=== PATIENT | male | born 1975 | race Caucasian/White ===

== ENCOUNTER 2016-11-08 09:01 | Emergency (ER) | payer BC ==
[~2016-11-08] VITALS: Ht 182.9 cm; Wt 85.0 kg
[~2016-11-08 09:01] MED LIST: AMOX500T PO; CLAR10TA13 PO; LORTA5 PO; NAPR-576 PO
[2016-11-08 09:04] VITALS: BP 154/81; PULSE 96; RESP 20; TEMP 98.4; O2SAT 98
[2016-11-08] MEDS ORDERED: KETOROLAC TROMETHAMINE 60 MG/2 ML (IM) VIAL IM ONE (09:15)
--- NOTE | 2016-11-08 09:15 | PD ---
HPI . right foot injury Chief Complaint: Injury Time Seen by Provider: 09:16 Travel History International Travel<30 days: No Contact w/Intl Traveler<30days: No Traveled to known affect area: No History of Present Illness HPI 41-year-old male with no significant past medical history here with complaints of right foot pain. Apparently patient was extremely intoxicated early this morning and somehow sustained an injury to his right anterior foot. He is unaware of an actual injury mechanism. He is currently residing in a sober house and was kicked out last night due to being inebriated. He was sleeping in the street when his injury occurred. This morning when he was back to himself, he reached out to the leader of the sober house and asked to be brought into the emergency department. Patient is complaining of pain in his right anterior foot, without radiation and 10/10 on a pain scale. He does not want any narcotic medications. He denies any significant past medical history and does not have a primary care provider. He denies any head injury, abdominal pain or other joint pain. [facility] Past Medical History Medical History: Denies Significant Hx Past Surgical History Oral Surgery: Yes Social History Alcohol Use: No Tobacco Use: Yes Substance Use: No Allergies-Medications (Allergen,Severity, Reaction): Coded Allergies: No Known Allergies (Unverified , 11/08/16) Reported Meds & Prescriptions Reported Meds & Active Scripts Active Ibuprofen 800 Mg Tab 800 Mg PO TID Review of Systems General / Constitutional: No: Fever Eyes: No: Visual changes HENT: No: Headaches, Vertigo, Lightheadedness Cardiovascular: No: Chest Pain or Discomfort Respiratory: No: Shortness of Breath Gastrointestinal: No: Abdominal Pain Genitourinary: No: Dysuria Musculoskeletal: Positive: Pain (right foot) Skin: No Rash Neurologic: No: Weakness Psychiatric: No: Depression Endocrine: No: Polydipsia Hematologic/Lymphatic: No: Easy Bruising Physical Exam Narrative GENERAL: AAO x 4, no acute distress, Well-nourished, well-developed patient. SKIN: Warm and dry. No visible rashes. Mild erythema and slight edema to the anterior medial right foot. No ecchymosis. HEAD: Normocephalic and atraumatic. EYES: No scleral icterus. No injection or drainage. ENT: No nasal drainage noted. Mucous membranes pink. Airway patent. NECK: Supple, trachea midline. No JVD. CARDIOVASCULAR: Regular rate and rhythm without murmurs, gallops, or rubs. RESPIRATORY: Breath sounds equally diminished bilaterally. No accessory muscle use. No rhonchi or rales. GASTROINTESTINAL: Abdomen soft, non-tender, nondistended. EXTREMITIES: No cyanosis. Right anterior foot with mild edema and erythema. Point tenderness over the anterior right foot (navicular and cuneiform bones). Pedal pulses are intact. Sensation is normal. BACK: Nontender without obvious deformity. No CVA tenderness. PSYCH: AAO x 4, normal affect. Data Data Last Documented VS Vital Signs Date Time Temp Pulse Resp B/P Pulse Ox O2 Delivery O2 Flow Rate FiO2 11/08/16 09:04 98.4 96 20 154/81 98 Room Air Orders Ketorolac Inj (Toradol Inj) (11/08/16 09:15) Foot, Complete ([id number]) (11/08/16 09:15) ^ Billy Bandage (11/08/16 09:41) Crutches (11/08/16 09:41) MDM Medical Decision Making Medical Screen Exam Complete: Yes Emergency Medical Condition: Yes Medical Record Reviewed: Yes Differential Diagnosis foot sprain, foot fracture, less likely cellulitis Narrative Course 41-year-old male with no significant past medical history here with complaints of right foot pain. Apparently patient was extremely intoxicated early this morning and somehow sustained an injury to his right anterior foot. He is unaware of an actual injury mechanism. He is currently residing in a sober house and was kicked out last night due to being inebriated. He was sleeping in the street when his injury occurred. This morning when he was back to himself, he reached out to the leader of the sober house and asked to be brought into the emergency department. Patient is complaining of pain in his right anterior foot, without radiation and 10/10 on a pain scale. He does not want any narcotic medications. He denies any significant past medical history and does not have a primary care provider. He denies any head injury, abdominal pain or other joint pain. Patient seen and examined. He has significant tenderness over his right anterior foot. We will go ahead and proceed with an x-ray of this extremity. Patient was given a shot of Toradol for pain control. Xray negative for fracture. Discussed with patient. More than likely this is a simple sprain. Provided billy wrap and crutches. Ibuprofen for pain relief. Advised patient to rest, ice, use compression and elevate injured area. Patient verbalized understanding of instructions, questions were answered, and thanked me for their care. I advised them if their condition worsens, please return to the nearest emergency room for further care. Diagnosis Primary Impression: Right foot sprain Qualified Code: S93.601A - Right foot sprain, initial encounter Patient Instructions: Foot Sprain (ED), General Instructions Additional Instructions: Please return to emergency department if your symptoms return or worsen. Follow up with your primary care provider. Take medications as prescribed. Rest the affected area as much as possible. Ice this area for 15-20 minutes at a time. You can do this every hour or as much as tolerated. Keep this area compressed (billy bandage) as tolerated. Elevate this area. Use ibuprofen as needed for pain and inflammation. Med/Other Pt SpecificInfo: Prescription(s) given Scripts Ibuprofen 800 Mg Fru469 Mg PO TID #30 TAB Prov:Casi Barnhart MD 11/08/16 Disposition: 01 DISCHARGE HOME Condition: Stable Nataliia Kaiser Nov 08, 2016 09:14
--- NOTE | 2016-11-08 09:38 | RADRPT ---
EXAM DATE/TIME: 11/08/2016 09:27 [facility] COMPARISON: No previous studies available for comparison. INDICATIONS : Right foot pain post unknown injury on 11/07/16. MEDICAL HISTORY : None. SURGICAL HISTORY : None. ENCOUNTER: Initial ACUITY: 1 day PAIN SCORE: 7/10 LOCATION: Right foot. FINDINGS: Three view examination of the right foot demonstrates no soft tissue swelling, dislocation, or fractu re. The tarsal bones appear intact. The interphalangeal and metatarsophalangeal joints are intact. The calcaneus is intact. Bony mineralization is normal. CONCLUSION: No acute disease. Vasyl Esquivel MD on November 08, 2016 at 9:36 Board Certified Radiologist. This report was verified electronically.
[2016-11-08] MEDS ORDERED: IBUP800T23 PO (09:43)
== END 2016-11-08 10:07 | disposition home or self-care (01) ==
LOC: NEPB 09:01
DX: S93.601A Unspecified sprain of right foot, initial encounter (principal); Z72.0 Tobacco use
CPT/HCPCS: 73630; 96372; 99283; E0113; J1885

== ENCOUNTER 2017-03-21 22:04 | Emergency (ER) | payer OTHER ==
[~2017-03-21] VITALS: Ht 177.8 cm; Wt 78.0 kg
[~2017-03-21 22:04] MED LIST changes: -AMOX500T PO; -CLAR10TA13 PO; +IBUP800T23 PO; -LORTA5 PO; -NAPR-576 PO
--- NOTE | 2017-03-21 22:28 | PD ---
HPI Chief Complaint: Law act Time Seen by Provider: 22:23 Travel History International Travel<30 days: No Contact w/Intl Traveler<30days: No Traveled to known affect area: No History of Present Illness HPI 41-year-old male brought in by PD under Law act. According to the Law act, police officers responded to an alleged suicidal subject. Law act reads that this 3 witnesses outside of the patient's residence advised police officers that the patient has been feeling depressed and wanted to go home in by narcotics so he would be able to intentionally overdose. He was seen drinking alcohol today. Upon arrival to the emergency department the patient is significantly agitated. He is adamantly denying suicidal or homicidal ideation as well as alcohol or illicit drug use. PFSH Past Surgical History Oral Surgery: Yes Social History Alcohol Use: No Tobacco Use: Yes Substance Use: No Allergies-Medications (Allergen,Severity, Reaction): Coded Allergies: No Known Allergies (Unverified , 11/08/16) Reported Meds & Prescriptions Reported Meds & Active Scripts Active Ibuprofen 800 Mg Tab 800 Mg PO TID Review of Systems Except as stated in HPI: all other systems reviewed are Neg Physical Exam Narrative GENERAL: Well-developed, well-nourished, agitated, yelling, appears intoxicated SKIN: Focused skin assessment warm/dry. HEAD: Atraumatic. Normocephalic. EYES: Pupils equal and round. No scleral icterus. No injection or drainage. ENT: Mucous membranes pink and moist. NECK: Trachea midline. No JVD. CARDIOVASCULAR: Regular rate and rhythm. RESPIRATORY: No accessory muscle use. Clear to auscultation. Breath sounds equal bilaterally. GASTROINTESTINAL: Abdomen soft, non-tender, nondistended. MUSCULOSKELETAL: No obvious deformities. No clubbing. No cyanosis. No edema. NEUROLOGICAL: Awake and alert. No obvious cranial nerve deficits. Motor grossly within normal limits. Normal speech. PSYCHIATRIC: Labile mood. Appears intoxicated. Agitated. Data Data Orders Complete Blood Count With Diff (03/21/17 22:23) Comprehensive Metabolic Panel (03/21/17 22:23) Psych Screen (03/21/17 22:23) Drug Screen, Random Urine (03/21/17 22:23) Alcohol (Ethanol) (03/21/17 22:23) Salicylates (Aspirin) (03/21/17 22:23) Tylenol (Acetaminophen) (03/21/17 22:23) Haloperidol Inj (Haldol Inj) (03/21/17 23:00) Restraints Violent (03/21/17 22:55) Sodium Chlor 0.9% 1000 Ml Inj (Ns 1000 M (03/21/17 23:15) Labs Laboratory Tests Test 03/21/17 22:30 White Blood Count 14.4 TH/MM3 Red Blood Count 4.99 MIL/MM3 Hemoglobin 15.9 GM/DL Hematocrit 47.1 % Mean Corpuscular Volume 94.3 FL Mean Corpuscular Hemoglobin 31.9 PG Mean Corpuscular Hemoglobin 33.8 % Concent Red Cell Distribution Width 13.8 % Platelet Count 264 TH/MM3 Mean Platelet Volume 8.0 FL Neutrophils (%) (Auto) 55.1 % Lymphocytes (%) (Auto) 35.0 % Monocytes (%) (Auto) 7.6 % Eosinophils (%) (Auto) 1.6 % Basophils (%) (Auto) 0.7 % Neutrophils # (Auto) 7.9 TH/MM3 Lymphocytes # (Auto) 5.1 TH/MM3 Monocytes # (Auto) 1.1 TH/MM3 Eosinophils # (Auto) 0.2 TH/MM3 Basophils # (Auto) 0.1 TH/MM3 CBC Comment DIFF FINAL Differential Comment Sodium Level 143 MEQ/L Potassium Level 3.8 MEQ/L Chloride Level 107 MEQ/L Carbon Dioxide Level 23.6 MEQ/L Anion Gap 12 MEQ/L Blood Urea Nitrogen 11 MG/DL Creatinine 1.14 MG/DL Estimat Glomerular Filtration 70 ML/MIN Rate Random Glucose 104 MG/DL Calcium Level 9.1 MG/DL Total Bilirubin 0.3 MG/DL Aspartate Amino Transf 21 U/L (AST/SGOT) Alanine Aminotransferase 34 U/L (ALT/SGPT) Alkaline Phosphatase 80 U/L Total Protein 8.3 GM/DL Albumin 4.5 GM/DL Salicylates Level 4.4 MG/DL Acetaminophen Level LESS THAN 2.0 MCG/ML Ethyl Alcohol Level 286 MG/DL [facility] Medical Decision Making Medical Screen Exam Complete: Yes Emergency Medical Condition: Yes Differential Diagnosis Intoxication, suicidal ideation, depression, drug induced mood disorder Narrative Course Upon presentation to the emergency department patient was very agitated and appeared intoxicated. I was able to easily talk him down, however shortly after he became agitated once again. He refused to cooperate with simple instructions. He then lit a cigarette in his room and became verbally aggressive and threatening towards staff. Patient was deemed both a danger to himself as well as to staff. For this reason he was placed in both physical and chemical restraint. CBC shows WBC 14.4, hemoglobin 15.9, hematocrit 47.1, platelets 264. CMP is unremarkable. Tylenol and salicylate levels are negative. Alcohol level is 286. The patient is medically cleared for psychiatric evaluation and disposition by them. Diagnosis Primary Impression: Alcohol-induced mood disorder Roderick Samson MD Mar 21, 2017 22:28
[2017-03-21 22:40] VITALS: BP 175/104; PULSE 157; RESP 18; TEMP 99.3; O2SAT 96
[2017-03-21 22:51] LABS: AUTOMATED NEUTROPHIL # 7.9 TH/MM3 (1.8-7.7); BASOPHIL # 0.1 TH/MM3 (0-0.2); BASOPHIL % 0.7 % (0.0-2.0); EOSINOPHIL # 0.2 TH/MM3 (0-0.4); EOSINOPHIL % 1.6 % (0.0-4.0); HEMATOCRIT 47.1 % (39.0-51.0); HEMO FLAGS DIFF FINAL; LYMPHOCYTE # 5.1 TH/MM3 (1.0-4.8); MEAN CELL VOLUME 94.3 FL (80.0-100.0); MEAN CORPUSCULAR HEMOGLOBIN 31.9 PG (27.0-34.0); MEAN CORPUSCULAR HGB CONC 33.8 % (32.0-36.0); MONO % 7.6 % (0.0-8.0); NEUT % 55.1 % (16.0-70.0); PLATELET COUNT 264 TH/MM3 (150-450); RED BLOOD COUNT 4.99 MIL/MM3 (4.50-5.90); RED CELL DISTRIBUTION WIDTH 13.8 % (11.6-17.2); WHITE BLOOD COUNT 14.4 TH/MM3 (4.0-11.0)
[2017-03-21 22:58] LABS: ANION GAP 12 MEQ/L (5-15)
[2017-03-21] MEDS ORDERED: HALOPERIDOL LACTATE 5 MG/ML AMP IV PUSH ONE (23:00)
[2017-03-21 23:07] LABS: ALKALINE PHOSPHATASE 80 U/L (45-117); ALT (GPT) 34 U/L (12-78); AST (GOT) 21 U/L (15-37); BICARBONATE 23.6 MEQ/L (21.0-32.0); BLOOD UREA NITROGEN 11 MG/DL (7-18); CHLORIDE 107 MEQ/L (98-107); GLOMERULAR FILTRATION RATE 70 ML/MIN (>89); POTASSIUM 3.8 MEQ/L (3.5-5.1); SODIUM (NA) 143 MEQ/L (136-145); TOTAL BILIRUBIN ADULT 0.3 MG/DL (0.2-1.0)
[2017-03-21 23:08] LABS: ACETAMINOPHEN LESS THAN 2.0 MCG/ML (10.0-30.0)
[2017-03-21] MEDS ORDERED: SODIUM CHLOR 0.9% 1000 ML INJ 1,000 ML IV ONE (23:15)
[2017-03-21 23:21] VITALS: BP 129/73; PULSE 96; RESP 12; O2SAT 97
[2017-03-22] MEDS ORDERED: LORazepam 2 MG/ML VIAL IV PUSH ONE
[2017-03-22 01:05] VITALS: BP 97/56; PULSE 86; RESP 12; O2SAT 95
[2017-03-22 03:33] VITALS: BP 133/84; PULSE 83; RESP 16; O2SAT 99
[2017-03-22 06:44] VITALS: BP 123/62; PULSE 66; RESP 16; O2SAT 100
--- NOTE | 2017-03-22 12:14 | PD ---
History of Present Illness Chief Complaint: Psychiatric Symptoms Time Seen by Provider: 11:40 Travel History International Travel<30 Days: No Contact w/Intl Traveler<30days: No Known affected area: No Legal Status Legal Status: Law Act Law Act Signed By: Isaias Lu History of Present Illness: History of Present Illness HPI 41-year-old male with no reported psychiatric history who is brought in by PD under Law act. The BA report alleges that three of the patient's neighbors were concerned that the patient looked depressed and that he wanted to go buy narcotics so that he could overdose. The patient's reported that he has made suicidal statements in the past but has never acted upon them. He presented to ED intoxicated and agitated with BAL of 286. EMR is reviewed. No previous contact with [facility] psychiatry dept. The patient is seen. Case discussed with nurse Ro. I spoke with his ermias at [phone] and she reports no concerns for his safety as long as he remains sober. He does not make suicidal statements unless he is inebriated. She further states " he is not a person to hurt himself or anyone else". Patient is alert and oriented male who is maintaining hygiene. He is clinically sober. His speech is clear and logical. there is no evidence of any hallucinatory process. No suicidal or homicidal ideation and denies any symptom of depression or anxiety. He denies that he drinks every day. He has no previous suicide attempts. PFSH Past Medical History Medical History: Unable to Obtain ?: Unknown Past Surgical History Oral Surgery: Yes Other Surgery: Yes (FACIAL SX) Psychiatric History Psychiatric History Hx Psychiatric Treatment: None History of Inpatient Treatment: No Guns or firearms in home: No Social History x 6 years. Lives with and 2 children ages 10 years and 8 years. Unemployed x 2 months. has worked as a metal fitters and machinists. Hx Alcohol Use: Yes Hx Tobacco Use: Yes Hx Substance Use: No Family Psychiatric History Negative Allergies-Medications (Allergen,Severity, Reaction): Coded Allergies: No Known Allergies (Unverified , 03/21/17) Reported Meds & Prescriptions Reported Meds & Active Scripts Active Ibuprofen 800 Mg Tab 800 Mg PO TID Review of Systems Except as stated in HPI: all other systems reviewed are Neg Exam Alert: Yes [place]: Person (ox4) Mood: Calm Affect: Appropriate Speech: Clear, Logical Eye Contact: Normal Memory Intact: Comment (No impairmetn) Hallucinations: Other (Negative) Delusions: No Suicidal: Ideation (Deneis any) Homicidal: Ideation (Deneis any) Insight/Judgement Fair. not impaired. MDM Medical Decision Making Medical Record Reviewed: Yes Assessment/Plan 41-year-old male with no reported psychiatric history who is brought in by PD under Law act. The BA report alleges that three of the patient's neighbors were concerned that the patient looked depressed and that he wanted to go buy narcotics so that he could overdose. The patient's reported that he has made suicidal statements in the past but has never acted upon them. He presented to ED intoxicated and agitated with BAL of 286. After the patient sobered up clinically he denies any suicidal or homicidal ideation,intent or plan. There is no indication of any acute psychiatric symptomatology. He does not meet BA criteria. I will lift the BA. I have counseled him regarding abstinence from ETOH. he will be provided with resources in community such as AA. Orders Complete Blood Count With Diff (03/21/17 22:23) Comprehensive Metabolic Panel (03/21/17 22:23) Psych Screen (03/21/17 22:23) Drug Screen, Random Urine (03/21/17 22:23) Alcohol (Ethanol) (03/21/17 22:23) Salicylates (Aspirin) (03/21/17 22:23) Tylenol (Acetaminophen) (03/21/17 22:23) Haloperidol Inj (Haldol Inj) (03/21/17 23:00) Restraints Violent (03/21/17 22:55) Sodium Chlor 0.9% 1000 Ml Inj (Ns 1000 M (03/21/17 23:15) Lorazepam Inj (Ativan Inj) (03/22/17 00:00) Diet Regular Basic (03/22/17 Breakfast) Diet Regular Basic (03/22/17 Lunch) Results Vital Signs Date Time Temp Pulse Resp B/P Pulse Ox O2 Delivery O2 Flow Rate FiO2 03/22/17 06:44 66 16 123/62 100 Nasal Cannula 2 03/22/17 03:33 83 16 133/84 99 Nasal Cannula 2 03/22/17 01:05 86 12 97/56 95 Nasal Cannula 2 03/21/17 23:21 96 12 129/73 97 Nasal Cannula 2 03/21/17 23:18 96 12 03/21/17 22:40 99.3 157 18 175/104 96 Laboratory Tests Test 03/21/17 22:30 White Blood Count 14.4 Red Blood Count 4.99 Hemoglobin 15.9 Hematocrit 47.1 Mean Corpuscular Volume 94.3 Mean Corpuscular Hemoglobin 31.9 Mean Corpuscular Hemoglobin 33.8 Concent Red Cell Distribution Width 13.8 Platelet Count 264 Mean Platelet Volume 8.0 Neutrophils (%) (Auto) 55.1 Lymphocytes (%) (Auto) 35.0 Monocytes (%) (Auto) 7.6 Eosinophils (%) (Auto) 1.6 Basophils (%) (Auto) 0.7 Neutrophils # (Auto) 7.9 Lymphocytes # (Auto) 5.1 Monocytes # (Auto) 1.1 Eosinophils # (Auto) 0.2 Basophils # (Auto) 0.1 CBC Comment DIFF FINAL Differential Comment Sodium Level 143 Potassium Level 3.8 Chloride Level 107 Carbon Dioxide Level 23.6 Anion Gap 12 Blood Urea Nitrogen 11 Creatinine 1.14 Estimat Glomerular Filtration 70 Rate Random Glucose 104 Calcium Level 9.1 Total Bilirubin 0.3 Aspartate Amino Transf 21 (AST/SGOT) Alanine Aminotransferase 34 (ALT/SGPT) Alkaline Phosphatase 80 Total Protein 8.3 Albumin 4.5 Salicylates Level 4.4 Acetaminophen Level LESS THAN 2.0 Ethyl Alcohol Level 286 Diagnosis Primary Impression: Alcohol-induced mood disorder Additional Impression: Alcohol intoxication Psychiatrically Cleared: Yes Med/ Other Pt Specific Info: No Meds Exist/No RX given Disposition: 01 DISCHARGE HOME Condition: Stable Problem Qualifiers Additional Impression: Alcohol intoxication Qualified Code: F10.920 - Alcohol intoxication, uncomplicated Madie Bro [facility] Mar 22, 2017 12:14
== END 2017-03-22 12:28 | disposition home or self-care (01) ==
LOC: NEPD 22:04 → NEPJ 03-22 12:28
DX: F10.129 Alcohol abuse with intoxication, unspecified (principal); F10.94 Alcohol use, unspecified with alcohol-induced mood disorder; Z72.0 Tobacco use
CPT/HCPCS: 80053; 80307; 85025; 96374; 96375; 99285; J1630; J2060; J7030

== ENCOUNTER 2018-01-07 07:56 | Emergency (ER) | payer OTHER ==
[~2018-01-07] VITALS: Ht 182.9 cm; Wt 75.0 kg
[~2018-01-07 07:56] MED LIST changes: +IBUP1TAB7 PO; -IBUP800T23 PO
[2018-01-07 07:57] VITALS: BP 127/70; PULSE 100; RESP 18; TEMP 98.7; O2SAT 100
--- NOTE | 2018-01-07 08:29 | PD ---
HPI Chief Complaint: Musculoskeletal Complaint Time Seen by Provider: 08:07 Travel History International Travel<30 days: No Contact w/Intl Traveler<30days: No Traveled to known affect area: No History of Present Illness HPI This is a 42-year-old male with a history of scoliosis and chronic back pain, presents today with an exacerbation of his back pain. Patient reports he gets pain under his left scapula when he has back pain. He thinks it is due to his scoliosis and the way he holds his posture. Patient denies any acute injury. There is no reported shortness of breath. There is no reported chest pain. Patient states that it hurts when he moves from side to side and lifts his arm up over his head. There are no other complaints at time of my examination. PFSH Past Medical History Medical other: Yes (scoliosis) Past Surgical History Oral Surgery: Yes Other Surgery: Yes (FACIAL SX) Social History Alcohol Use: No Tobacco Use: Yes (a pack a day) Substance Use: No Allergies-Medications (Allergen,Severity, Reaction): Coded Allergies: No Known Allergies (Unverified , 03/21/17) Reported Meds & Prescriptions Reported Meds & Active Scripts Active Medrol Dosepak (Methylprednisolone) 4 Mg Dspk 4 Mg PO DIRECTED Per Pharmacist direction Ultram (Tramadol HCl) 50 Mg Tab 50 Mg PO Q8H PRN 3 Days Arthrotec 75 (Diclofenac-Misoprostol) 75-0.2 Mg Tab 1 Tab PO BID Ibuprofen 800 Mg Tab 800 Mg PO TID Review of Systems Except as stated in HPI: all other systems reviewed are Neg General / Constitutional: No: Fever, Chills HENT: No: Headaches, Neck Pain Cardiovascular: No: Chest Pain or Discomfort, Irregular Rhythm Respiratory: No: Cough, Shortness of Breath Gastrointestinal: No: Nausea, Vomiting, Abdominal Pain Musculoskeletal: Positive: Limited ROM (Secondary to pain), Pain (Left infrascapular and medial scapular area), No: Weakness Skin: No Rash, No Lesions Neurologic: No: Weakness, Headache, Sensory Disturbance Physical Exam Narrative GENERAL: Well-nourished, well-developed patient, in no acute distress. SKIN: Focused skin assessment warm/dry. HEAD: Normocephalic/atraumatic. NECK: Supple, trachea midline. No JVD or lymphadenopathy. CARDIOVASCULAR: Regular rate and rhythm without murmurs, gallops, or rubs. RESPIRATORY: Breath sounds equal bilaterally. No accessory muscle use. GASTROINTESTINAL: Abdomen soft, non-tender, nondistended. No pulsatile masses appreciated. MUSCULOSKELETAL: Patient has point tenderness to the medial left scapular area. Patient has obvious scoliosis and asymmetry of his scapulars bilaterally. There is no bony deformity. BACK: No midline posterior spinous process tenderness. Tenderness as above in the left scapular area. Data Data Last Documented VS Vital Signs Date Time Temp Pulse Resp B/P (MAP) Pulse Ox O2 Delivery O2 Flow Rate FiO2 01/07/18 07:57 98.7 100 18 127/70 (89) 100 Orders Orders Chest, Single Ap (01/07/18 08:13) Scapula (01/07/18 08:13) Ketorolac Inj (Toradol Inj) (01/07/18 08:30) MDM Medical Decision Making Medical Screen Exam Complete: Yes Emergency Medical Condition: Yes Differential Diagnosis Muscular strain versus bony injury versus pulmonary infiltrate Narrative Course 42-year-old male presents today with complaints of left scapular pain. The patient is a heavy smoker. Patient has severe scoliosis. Patient has reproducible pain in his inferior and medial scapula region. There is no bony deformity. X-ray shows no fracture. Chest x-ray shows a nodule in his left lung base which is probably a granuloma according to the radiologist. Recommendation is for an outpatient CT scan. I have informed the patient of the finding on his chest x-ray. His been instructed to follow-up with a primary care physician for follow-up. He will be given a copy of his CT scan for the follow-up. He has been given Toradol 60 mg IM 1 dose. He will be discharged with Arthrotec 75 mg as well as a Medrol Dosepak. He also be given Ultram for 3 days every 8 hours. He is instructed to stop smoking. Diagnosis Primary Impression: Left periscapular discomfort Additional Impressions: Scoliosis Nodule of left lung Tobacco use Tobacco use Additional Instructions: Chest x-ray reveals a lung nodule at the left base. Recommendation is for outpatient CAT scan and follow-up. Please follow-up with a primary care physician for further evaluation. Stop smoking. Med/Other Pt SpecificInfo: Prescription(s) given Scripts Methylprednisolone Dosepak (Medrol Dosepak) 4 Mg Dspk 4 MG PO DIRECTED, #1 DSPK 0 Refills Per Pharmacist direction Prov: Pan Adams MD 01/07/18 Tramadol (Ultram) 50 Mg Tab 50 MG PO Q8H Y for PAIN for 3 Days, #9 TAB 0 Refills Prov: Pan Adams MD 01/07/18 Diclofenac-Misoprostol (Arthrotec 75) 75-0.2 Mg Tab 1 TAB PO BID for Pain Management, #30 TAB 0 Refills Prov: Pan Adams MD 01/07/18 Disposition: 01 DISCHARGE HOME Condition: Stable Pan Adams MD January 07, 2018 08:29
[2018-01-07] MEDS ORDERED: KETOROLAC TROMETHAMINE 60 MG/2 ML (IM) VIAL IM ONE (08:30)
--- NOTE | 2018-01-07 08:47 | RADRPT ---
EXAM DATE/TIME: 01/07/2018 08:30 [facility] COMPARISON: No previous studies available for comparison. INDICATIONS : Left scapula pain, no injury. MEDICAL HISTORY : Scoliosis SURGICAL HISTORY : None. ENCOUNTER: Initial ACUITY: 1 day PAIN SCORE: 8/10 LOCATION: Left chest FINDINGS: Brachial lumbar scoliosis. Right lung is clear. Small 7 mm nodule left lung. No infiltrates no ronna lure. CONCLUSION: Marked scoliosis Small left lung nodule. Outpatient followup CT scan is suggested. Henri Jennings MD FACR on January 07, 2018 at 8:43 Board Certified Radiologist. This report was verified electronically.
--- NOTE | 2018-01-07 08:47 | RADRPT ---
EXAM DATE/TIME: 01/07/2018 08:32 [facility] COMPARISON: No previous studies available for comparison. INDICATIONS : Left scapula pain, no known injury. MEDICAL HISTORY : Scoliosis SURGICAL HISTORY : None. ENCOUNTER: Initial ACUITY: 1 day PAIN SCORE: 8/10 LOCATION: Left scapula. FINDINGS: Two view examination of the left scapula demonstrates no evidence of fracture. The glenohumeral and acromioclavicular joints are maintained. Bony mineralization is normal. Nodule left base appears ca lcified on these films. Probably granuloma. CONCLUSION: Scoliosis, negative for fracture. Probable granuloma left base. Henri Jennings MD FACR on January 07, 2018 at 8:44 Board Certified Radiologist. This report was verified electronically.
[2018-01-07] MEDS ORDERED: TRAM50 PO (09:46)
[2018-01-07] MEDS ORDERED: ARTHTAB5 PO (09:46)
[2018-01-07] MEDS ORDERED: MEDR4PAK PO (09:46)
== END 2018-01-07 09:58 | disposition home or self-care (01) ==
LOC: NEPE 07:56
DX: M25.512 Pain in left shoulder (principal); M41.9 Scoliosis, unspecified; R91.1 Solitary pulmonary nodule; F17.210 Nicotine dependence, cigarettes, uncomplicated
CPT/HCPCS: 71045; 73010; 96372; 99283; J1885